=== PATIENT | female | born 1970 | race Caucasian/White ===

== ENCOUNTER 2019-01-30 08:31 | Day surgery (SDC) | payer OTHER ==
--- NOTE | 2019-01-30 07:40 | HP ---
DATE OF SURGERY: 01/30/2019 HISTORY OF PRESENT ILLNESS: The patient is a 48 year-old with some problems with some heartburn and also is in need of screening colonoscopy. She denies any change in bowel movement, denies any bloody stools. No pain. Family history positive for colon cancer. Due to increased heartburn as well as need for screening colonoscopy I felt she would benefit from EGD and colonoscopy. PAST MEDICAL HISTORY: Hypercholesterolemia. She had some reflux and gout, some hypertension, chronic obstructive pulmonary disease. PAST SURGICAL HISTORY: Back surgery in the past. Exploratory surgery in the past. Tonsillectomy. Tubal in the past. Hysterectomy. MEDICATIONS: She has been on metoprolol, Allopurinol, escitalopram, Baclofen, omeprazole, Ventolin, atorvastatin, some Nitro PRN. ALLERGIES: CODEINE. FAMILY HISTORY: Colon cancer, diabetes. SOCIAL HISTORY: One pack per day smoker, denies alcohol abuse. REVIEW OF SYSTEMS: Twelve systems reviewed per admission assessment. No chest pain or palpitations other systems negative or noncontributory as above and per preadmission questionnaire. PHYSICAL EXAMINATION: GENERAL: No acute distress. HEENT: Sclerae nonicteric. NECK: No JVD. CHEST: Equal excursion, nonlabored breathing. CVS: Regular rate and rhythm. ABDOMEN: Soft. No peritoneal signs. EXTREMITIES: No significant edema. NEURO: Alert, oriented, moving extremities symmetrically. No gross motor deficits noted. RECTAL: Deferred timed to endoscopy exam. IMPRESSION: Increasing heartburn, need for follow up EGD as well as follow up screening colonoscopy. She has a family history of colon cancer. Shown the risk sheet and explained the procedures in detail but not limited to bleeding or infection, small risk of bowel injury or perforation possibly requiring open procedure, risk of missed or nondiagnosis or incomplete exam possibly requiring barium enema , other studies or procedures. She understands and agrees to the planned procedure and will proceed with outpatient EGD and colonoscopy.
[~2019-01-30 08:31] MED LIST: Lactated Ringers 1,000 ML IV ONE; Lactated Ringers 1,000 ML IV SCH
[2019-01-30] MEDS ORDERED: Ketamine HCl 50 MG/ML IJ ONE (08:32)
[2019-01-30] MEDS ORDERED: DIPRIVAN 200 MG/20 ML IV ONE (08:32)
[2019-01-30 12:27] VITALS: O2SAT 97
[2019-01-30 12:29] VITALS: BP 129/85; PULSE 69
--- NOTE | 2019-01-31 08:40 | OP ---
SURGERY DATE/TIME: 01/30/2019 1012 PREOPERATIVE DIAGNOSES: 1) Family history of colon cancer. 2) History of heartburn, need for upper endoscopy as well as follow up screening colonoscopy. POSTOPERATIVE DIAGNOSES: 1) Mild gastritis/duodenitis. 2) Minimal to mild distal esophagitis. 3) Fair bowel prep. 4) Mild diverticulosis. 5) Small internal and external hemorrhoids. 6) Polyps. PROCEDURES: 1) EGD with cold biopsy of small bowel to evaluate for celiac sprue. 2) Cold biopsy of the antrum to evaluate for Helicobacter pylori. 3) Cold biopsy distal esophagus to evaluate for some mild chronic distal esophagitis. 4) Colonoscopy to terminal ileum. 5) Retrograde ileoscopy. 6) Hot snare ascending colon polyp. 7) Hot snare transverse colon polyp. 8) Hot biopsy sigmoid raised lesion versus early polyps x2 or 3. SURGEON: Dr. Terrance Ramires. ANESTHESIA: MAC. ESTIMATED BLOOD LOSS: Minimal. INDICATIONS: As noted above. Risks and benefits explained in detail and not limited to and consent obtained. DESCRIPTION OF PROCEDURE AND FINDINGS: The patient is taken to the operating room. MAC anesthesia introduced. After official time out and no disagreement with planned procedure, a bite block positioned. Video gastroscope easily passed down the esophagus through the gastroesophageal junction noted at about 37 - 38 cm, through the patent pylorus to the junction of the second and third portion of the duodenum. There was some mild duodenitis. Cold biopsy taken in second portion to evaluate for celiac sprue given her symptom complaints. Good hemostasis noted. Scope pulled back in the stomach. There was some minimal gastritis. Given her complaint of heartburn cold biopsy taken to evaluate for Helicobacter pylori. There were no signs of any large ulcers, masses or obstructing lesions and maybe just a slight 0.5 to 1 cm weakness at the hiatus. Scope straightened. Gastroesophageal junction 37 - 38 cm. Z-line was fairly crisp. Up above this there is just some changes of possible esophagitis in the past that may have been healing. Cold biopsy taken for evaluation. There were no signs of any obvious masses or evidence of bleeding. The scope withdrawn. Attention was then turned to the colonoscopy. Digital rectal exam did not reveal any rectal masses. She did have some small internal and external hemorrhoids. Video colonoscope inserted and passed up through the fair prepped colon with some liquidy and some semisolid stool suction irrigated as clear as possible. Scope slowly and carefully navigated around with external pressure down the transverse colon, ascending colon, ileocecal valve and up the terminal ileum. Retrograde ileoscopy is performed and was grossly unremarkable. The scope slowly and carefully withdrawn. In the ascending colon there was a polyp that was removed with a snare this was probably about 7 mm in size removed with brief bursts of cautery and the snare. Appeared to have good hemostasis in the proximal ascending colon. The scope slowly and carefully withdrawn. There are no signs of any large polyps, masses or obstructing lesions. There was another small polyp snared in the transverse colon as well as some small early polyp versus hyperplastic lesion in the sigmoid colon x2 or 3 that were removed with hot biopsy forceps. She had some mild diverticulosis. There were no signs of any large polyps, masses or obstructing lesions. The scope is withdrawn. She had some small internal and external hemorrhoids. The scope is withdrawn. The patient tolerated the procedure well. There were no immediate complications. Findings discussed with the family out in the waiting area.
== END 2019-01-30 11:55 | disposition home or self-care (01) ==
LOC: SDC 08:31
PROVIDERS: ATTEND Surgery
DX: Z12.11 Encounter for screening for malignant neoplasm of colon (principal); Z80.0 Family history of malignant neoplasm of digestive organs; K29.70 Gastritis, unspecified, without bleeding; K29.80 Duodenitis without bleeding; R12 Heartburn; K57.30 Diverticulosis of large intestine without perforation or abscess without bleeding; K64.4 Residual hemorrhoidal skin tags; K64.8 Other hemorrhoids; D12.3 Benign neoplasm of transverse colon; K63.5 Polyp of colon; Z79.899 Other long term (current) drug therapy
CPT/HCPCS: 87081; 88305; J2704